=== PATIENT | male | born 1990 | race Caucasian/White ===

== ENCOUNTER 2017-10-04 15:55 | Outpatient (CLI) | payer OTHER | END 2017-10-04 15:56 | disposition home or self-care (01) | LOC: BICRAD 15:55 | PROVIDERS: ATTEND Internal Medicine | DX: R10.9 Unspecified abdominal pain (principal) ==

== ENCOUNTER 2017-12-08 15:17 | Outpatient (CLI) | payer OTHER ==
[2017-12-08 16:00] LABS: #Basophils 0.1 thou/uL (0.0-0.2); #Eosinphils 0.1 thou/uL (0.0-0.7); #Lymphocytes 2.3 thou/uL (1.20-3.40); #Monocytes 0.5 thou/uL (0.11-0.59); #Neutrophils 1.8 thou/uL (1.40-6.50); %Basophils 1.2 % (0.0-1.0); %Eosinophils 1.7 % (0.0-10.0); %Lymphocytes 49.2 % (21.0-51.0); %Monocytes 9.9 % (0.0-10.0); %Neutrophils 37.9 % (42.0-75.0); Hemoglobin 14.4 g/dL (14.0-18.0); Mean Corpuscular HGB CONC 34.5 g/dL (32.0-36.0); Mean Corpuscular Hemoglobin 30.1 pg (27.0-31.0); Mean Corpuscular Volume 87.4 fl (80.0-94.0); Mean Platelet Volume 6.1 fL (7.4-10.4); Platelet Count 260 thou/uL (130-400); RBC Distribution Width 11.7 % (11.5-14.5); Red Blood Cell (RBC) Count 4.78 mill/uL (4.70-6.10); White Blood Cell (WBC) Count 4.7 thou/uL (4.8-10.8)
[2017-12-08 16:20] LABS: Anion Gap 11 mmol/L (10-20); BUN (Urea Nitrogen) 19 mg/dL (8.9-20.6); Calc. Creatinine Clearance 0 mL/min (70-130); Carbon Dioxide 28 mmol/L (22-29); Chloride 107 mmol/L (98-107); Estimated GFR-MDRD 72; Glucose 116 mg/dL (70-105); Sodium 142 mmol/L (136-145)
== END 2017-12-08 15:18 | disposition home or self-care (01) ==
LOC: LABBT 15:17
PROVIDERS: ATTEND Surgery
DX: Z01.812 Encounter for preprocedural laboratory examination (principal); K40.90 Unilateral inguinal hernia, without obstruction or gangrene, not specified as recurrent
CPT/HCPCS: 80048; 85025

== ENCOUNTER 2017-12-17 09:58 | Day surgery (SDC) | payer OTHER ==
[2017-12-08 15:24] VITALS: BMI 19.9
[2017-12-17] MEDS ORDERED: CEFAZOLIN/Water 2 GM/20 ML SYRINGE ONE (10:24)
[2017-12-17] MEDS ORDERED: Midazolam HCl 2 mg/2 ml Vial ONE (10:57)
[2017-12-17] MEDS ORDERED: Fentanyl 250 MCG/5 ML VIAL ONE (11:07)
[2017-12-17] MEDS ORDERED: Bupivacaine/Epinephrine 0.25% 30 ML VIAL ONE (11:34)
[2017-12-17] MEDS ORDERED: Rocuronium Bromide 50 MG/5 ML VIAL ONE (12:48)
--- NOTE | 2017-12-17 14:13 | OP ---
DATE OF PROCEDURE: 12/17/2017 PREOPERATIVE DIAGNOSIS: Right inguinal hernia. POSTOPERATIVE DIAGNOSIS: Right inguinal hernia. PROCEDURE: Da Kiki laparoscopic right inguinal hernia repair with mesh, 3DMax large. SURGEON: Espinoza Crum M.D. ANESTHESIA: General. ESTIMATED BLOOD LOSS: Minimal. COMPLICATIONS: None. SPECIMENS: None. FINDINGS: Right inguinal hernia. TECHNIQUE: The patient was taken to the operating room and placed supine on the table. After genera l anesthetic was obtained, Parker catheter was placed. The abdomen was shaved, prepped and draped in a sterile fashion. He was placed in Trendelenburg position. Curved incision made above the umbilicu s. Cautery was used to dissect down to and score the fascia. Abdominal cavity was entered bluntly u sing a Jerrica clamp. A 12 mm balloon trocar was placed and high-flow pneumoperitoneum was obtained. Left and right abdominal 8 mm robot ports were placed. All ports were docked to the robot. The jerry toneum was taken down in the right groin into the preperitoneal space. Preperitoneal space is bluntl y dissected all the way pubic tubercle medially, anterior superior iliac crest laterally, iliopectine al line fully exposed. The indirect hernia sac was dissected high upon to the peritoneum and out of the indirect hernia. 3DMax mesh brought into the sterile field and placed in the preperitoneal space . The mesh fully covers the direct, indirect and femoral areas. 2-0 Vicryl was used to affix the me sh to pubic tubercle, medially to the posterior fascia laterally. 3-0 Stratafix used to close the pe ritoneum. All needles were removed from the abdomen and accounted for. All port site incision. All port sites were infiltrated using local anesthetic. All ports were removed under camera visualizati on. Pneumoperitoneum was let down. PDS was used to close the fascial defect above the umbilicus. 4 -0 Monocryl and Dermabond were used to close all skin incisions. The patient was en route to recover y in stable condition. All instrument counts, needle counts, and lap counts were correct.
== END 2017-12-17 15:48 | disposition home or self-care (01) ==
LOC: SDC 09:58
PROVIDERS: ATTEND Surgery
PROC: 0YU54JZ Supplement Right Inguinal Region with Synthetic Substitute, Percutaneous Endoscopic Approach (ICD-10-PCS; principal; 2017-12-17)
DX: K40.90 Unilateral inguinal hernia, without obstruction or gangrene, not specified as recurrent (principal); Z91.011 Allergy to milk products
CPT/HCPCS: C1781; J0131; J2250; J3010